=== PATIENT | female | born 1955 | race Two or more races ===

== ENCOUNTER 2017-02-07 14:02 | Inpatient (IN) | payer SELFPAY ==
[~2017-02-07] VITALS: Ht 30.5 cm; Wt 66.2 kg
[2017-02-07 15:13] LABS: Albumin 2.1 g/dL (3.4-5.0); Alkaline Phosphatase 85 U/L (45-117); Anion Gap 7 (5-15); Aspartate Aminotransferase 17 U/L (15-37); BUN/Creatinine Ratio 30.7; Bilirubin, Total 0.4 mg/dL (0.2-1.0); Blood Urea Nitrogen 27 mg/dL (7-18); Carbon Dioxide 32 mmol/L (21-32); Chloride 103 mmol/L (98-107); GFR African American 83 mL/min; GFR Non-African American 69 mL/min; Glucose 357 mg/dL (74-106); Magnesium 2.3 mg/dL (1.6-2.6); Potassium 3.9 mmol/L (3.5-5.1); Sodium 142 mmol/L (136-145); Total Protein 6.3 g/dL (6.4-8.2)
[2017-02-07 15:15] LABS: Basophils # (auto) 0.1 uL; Basophils % (auto) 0.7 % (0.0-2.0); Eosinophils # (auto) 0.1 uL; Eosinophils % (auto) 1.2 % (0.0-7.0); Hematocrit 34.3 % (36.0-46.0); Hemoglobin 11.4 g/dL (12.2-16.2); Lymphocytes % (auto) 23.6 % (10.0-50.0); Mean Corpuscular Hemoglobin 30.6 pg (28.0-32.0); Mean Corpuscular Hgb Conc. 33.3 g/dL (32.0-36.0); Mean Corpuscular Volume 91.9 fL (80.0-100.0); Mean Platelet Volume 8.7 fL (7.4-10.4); Monocytes # (auto) 0.5 uL; Monocytes % (auto) 6.3 % (0.0-12.0); Neutrophils # (auto) 5.7 uL; Neutrophils % (auto) 68.2 % (37.0-80.0); Platelet Count (auto) 313 10^3/uL (140-450); Red Cell Distribution Width 13.2 % (11.6-16.0); White Blood Cell 8.3 10^3/uL (4.4-10.8)
[2017-02-07] MEDS ORDERED: cloNIDine HCL 0.1 MG TAB PO ONE (19:00)
[2017-02-07 21:29] LABS: B-Type Natriuretic Peptide 318.34 pg/mL (0-100); Temperature: 22.7 C (20.0-25.0)
[2017-02-07] MEDS ORDERED: FUROSEMIDE 40 MG/4 ML VIAL IV ONE (22:00)
[2017-02-07] MEDS ORDERED: InsuLIN REG 1unit/0.01ml Soln (100units/ml) SC ONE (22:00)
[2017-02-08] VITALS (7 sets, daily range): BP systolic 164–200; BP diastolic 77–98
[2017-02-08] MEDS ORDERED: ONDANSETRON HCL 4 MG/2 ML VIAL IV PRN (01:00)
[2017-02-08] MEDS ORDERED: ACETAMINOPHEN 325 MG TAB PO PRN (01:00)
[2017-02-08] MEDS ORDERED: hydrALAZINE HCL 20 MG/ML VL IV ONE ×2 (01:00→23:00)
[2017-02-08] MEDS ORDERED: DEXTROSE (50%) 50ML SYRG IV PRN (01:00)
[2017-02-08] MEDS: cloNIDine HCL 0.1 MG TAB PO PRN ×2 (03:51→22:16)
[2017-02-08] MEDS ORDERED: INFLUENZA QUAD 2016-2017 0.5 ML SYRG IM ONE (04:45)
[2017-02-08] MEDS ORDERED: GLIP-116 PO (04:46)
[2017-02-08] MEDS ORDERED: LISI10TA6 PO (04:46)
[2017-02-08] MEDS ORDERED: METF-316 PO (04:46)
[2017-02-08] MEDS: ACCU-CHEK COMFORT CURVE STRIP VI SCH ×4 (06:02→23:35)
[2017-02-08] MEDS: InsuLIN REG 1unit/0.01ml Soln (100units/ml) SC SCH ×4 (06:05→23:40)
[2017-02-08] MEDS ORDERED: FUROSEMIDE 20 MG TAB PO SCH (10:00)
[2017-02-08] MEDS ORDERED: PNEUMOCOCCAL VACC POLYS 25 MCG/0.5 ML VIAL IM ONE (10:00)
[2017-02-08] MEDS: FAMOTIDINE 20 MG TAB PO SCH ×2 (10:00→21:44)
[2017-02-08] MEDS: ENOXAPARIN SOD 40 MG/0.4 ML SYRINGE SC SCH (10:05)
[2017-02-08] MEDS: LISINOPRIL 5 MG TAB PO SCH (10:06)
[2017-02-09] VITALS (7 sets, daily range): BP systolic 136–208; BP diastolic 71–103
[2017-02-09] MEDS: ACCU-CHEK COMFORT CURVE STRIP VI SCH ×3 (05:44→18:24)
[2017-02-09] MEDS: InsuLIN REG 1unit/0.01ml Soln (100units/ml) SC SCH ×3 (05:54→18:29)
[2017-02-09 06:30] LABS: Basophils # (auto) 0 uL; Basophils % (auto) 0.5 % (0.0-2.0); Eosinophils # (auto) 0.1 uL; Eosinophils % (auto) 1.9 % (0.0-7.0); Hematocrit 29.5 % (36.0-46.0); Hemoglobin 10.2 g/dL (12.2-16.2); Lymphocytes # (auto) 1.6 uL; Lymphocytes % (auto) 25.6 % (10.0-50.0); Mean Corpuscular Hemoglobin 31.4 pg (28.0-32.0); Mean Corpuscular Hgb Conc. 34.5 g/dL (32.0-36.0); Mean Corpuscular Volume 91.2 fL (80.0-100.0); Mean Platelet Volume 8.2 fL (7.4-10.4); Monocytes # (auto) 0.5 uL; Monocytes % (auto) 7.6 % (0.0-12.0); Neutrophils % (auto) 64.4 % (37.0-80.0); Platelet Count (auto) 270 10^3/uL (140-450); Red Cell Distribution Width 13.6 % (11.6-16.0); White Blood Cell 6.3 10^3/uL (4.4-10.8)
[2017-02-09 07:08] LABS: Albumin 1.7 g/dL (3.4-5.0); BUN/Creatinine Ratio 32.3; Bilirubin, Total 0.4 mg/dL (0.2-1.0); Calcium 8.8 mg/dL (8.5-10.1); Potassium 3.3 mmol/L (3.5-5.1); Total Protein 5.2 g/dL (6.4-8.2)
[2017-02-09] MEDS ORDERED: POTASSIUM CHL 20 Meq TABLET PO ONE (09:00)
[2017-02-09] MEDS ORDERED: POTASSIUM CHL 20 Meq TABLET PO SCH (10:00)
[2017-02-09] MEDS: FAMOTIDINE 20 MG TAB PO SCH ×2 (11:00→21:46)
[2017-02-09] MEDS: LISINOPRIL 5 MG TAB PO SCH (11:01)
[2017-02-09] MEDS: FUROSEMIDE 20 MG TAB PO SCH (11:01)
[2017-02-09] MEDS: ENOXAPARIN SOD 40 MG/0.4 ML SYRINGE SC SCH (11:02)
[2017-02-09] MEDS: HYDROcodone-ACET 5/325MG TAB PO PRN (15:40)
[2017-02-09] MEDS: cloNIDine HCL 0.1 MG TAB PO PRN (15:40)
[2017-02-09 21:18] LABS: Urine Bilirubin Negative (Negative); Urine Blood TRACE /uL (Negative); Urine Color Yellow (Yellow); Urine Glucose 3+ mg/dL (Normal); Urine Ketone Negative (Negative); Urine Nitrite Negative (Negative); Urine RBC 2 /hpf (0 - 4); Urine Squamous Epithelial Cell FEW /hpf (<5); Urine Urobilinogen Normal (Negative); Urine pH 6.5 (5.0-8.0)
[2017-02-10] MEDS: InsuLIN REG 1unit/0.01ml Soln (100units/ml) SC SCH ×3 (00:37→12:00)
[2017-02-10] MEDS: ACCU-CHEK COMFORT CURVE STRIP VI SCH ×2 (05:21)
[2017-02-10 05:30] VITALS: BP 159/84
[2017-02-10 08:51] VITALS: BP 160/87
[2017-02-10] MEDS: HYDROcodone-ACET 5/325MG TAB PO PRN (08:55)
[2017-02-10] MEDS: cloNIDine HCL 0.1 MG TAB PO PRN (08:55)
[2017-02-10] MEDS ORDERED: POTASSIUM CHL 20 Meq TABLET PO SCH (10:00)
[2017-02-10] MEDS: ENOXAPARIN SOD 40 MG/0.4 ML SYRINGE SC SCH (11:01)
[2017-02-10] MEDS: FAMOTIDINE 20 MG TAB PO SCH (11:01)
[2017-02-10] MEDS: FUROSEMIDE 20 MG TAB PO SCH (11:01)
[2017-02-10] MEDS: LISINOPRIL 5 MG TAB PO SCH (11:02)
[2017-02-10 12:01] VITALS: BP 158/86
[2017-02-10 12:20] VITALS: BP 169/87
[2017-02-10 13:15] VITALS: BP 154/82
== END 2017-02-10 13:50 | disposition home or self-care (01) | DRG 291 ==
LOC: ER 14:02 → OVERFLOW 14:03 → EAST 02-08 03:04
PROVIDERS: ADMIT Nurse Practitioner; ATTEND Internal Medicine Pulmonary Disease
DX: I50.42 Chronic combined systolic (congestive) and diastolic (congestive) heart failure (principal); E43 Unspecified severe protein-calorie malnutrition; J98.11 Atelectasis; E11.65 Type 2 diabetes mellitus with hyperglycemia; E88.09 Other disorders of plasma-protein metabolism, not elsewhere classified; I11.0 Hypertensive heart disease with heart failure; Z82.49 Family history of ischemic heart disease and other diseases of the circulatory system; Z83.3 Family history of diabetes mellitus; I70.0 Atherosclerosis of aorta; Z91.19 Patient's noncompliance with other medical treatment and regimen; Z23 Encounter for immunization
CPT/HCPCS: 36415; 71020; 80053; 81001; 82962; 83036; 83735; 83880; 84484; 85025; 93005; 93306; 93970; 94761; 96372; 96374; 96375; J1815